=== PATIENT | male | born 1990 | race Two or more races ===

== ENCOUNTER → 2018-05-01 | Outpatient (CLI) | payer OTHER | END | disposition home or self-care (01) | LOC: LAB 10:02 | DX: Z11.3 Encounter for screening for infections with a predominantly sexual mode of transmission (principal) ==

== ENCOUNTER 2018-07-23 11:54 | Emergency (ER) | payer OTHER ==
[~2018-07-23] VITALS: Ht 152.4 cm; Wt 91.6 kg
== END 2018-07-23 16:16 | disposition home or self-care (01) ==
LOC: ER 11:54
DX: R06.02 Shortness of breath (principal); F06.4 Anxiety disorder due to known physiological condition

== ENCOUNTER 2018-07-30 14:53 | Outpatient (CLI) | payer OTHER | END 2018-07-30 15:02 | disposition home or self-care (01) | LOC: RAD 14:53 | DX: R05 Cough (principal) ==

== ENCOUNTER 2018-07-31 07:48 | Outpatient (CLI) | payer OTHER | END 2018-07-31 08:34 | disposition home or self-care (01) | LOC: LAB 07:48 | DX: R51 Headache (principal); R42 Dizziness and giddiness ==

== ENCOUNTER 2018-08-23 08:44 | Outpatient (CLI) | payer OTHER | END 2018-08-23 16:42 | disposition home or self-care (01) | LOC: LAB 08:44 | DX: D52.8 Other folate deficiency anemias (principal); A53.9 Syphilis, unspecified; B82.9 Intestinal parasitism, unspecified ==

== ENCOUNTER → 2019-12-16 08:00 | Outpatient (CLI) | payer OTHER | END | disposition home or self-care (01) | LOC: PPH VACUNA 08:00 | DX: Z23 Encounter for immunization (principal) ==

== ENCOUNTER 2020-01-27 10:40 | Emergency (ER) | payer OTHER ==
[~2020-01-27] VITALS: Ht 160 cm; Wt 86.2 kg
== END 2020-01-27 13:19 | disposition home or self-care (01) ==
LOC: ER 10:40
DX: R04.0 Epistaxis (principal); Z03.818 Encounter for observation for suspected exposure to other biological agents ruled out

== ENCOUNTER → 2020-02-06 | Outpatient (CLI) | payer OTHER | END | disposition home or self-care (01) | LOC: OFIC 805 12:45 | PROVIDERS: ATTEND Otolaryngology Otology & Neurotology | DX: R04.0 Epistaxis (principal); J31.0 Chronic rhinitis ==

== ENCOUNTER 2020-05-21 14:59 | Outpatient (CLI) | payer OTHER | END 2020-05-21 15:48 | disposition home or self-care (01) | LOC: OFIC 805 14:59 | PROVIDERS: ATTEND Otolaryngology Otology & Neurotology | DX: R04.0 Epistaxis (principal); J31.0 Chronic rhinitis; K21.9 Gastro-esophageal reflux disease without esophagitis ==

== ENCOUNTER 2020-07-27 07:23 | Outpatient (CLI) | payer OTHER | END 2020-07-27 07:27 | disposition home or self-care (01) | LOC: LAB 07:23 | DX: R10.13 Epigastric pain (principal) ==

== ENCOUNTER 2021-01-04 08:00 | Outpatient (CLI) | payer OTHER | END 2021-01-04 08:30 | disposition home or self-care (01) | LOC: PPH VACUNA 08:00 | PROVIDERS: ATTEND Emergency Medicine Pediatric Emergency Medicine | DX: Z23 Encounter for immunization (principal) ==

== ENCOUNTER → 2021-03-03 | Outpatient (CLI) | payer OTHER | END | disposition home or self-care (01) | LOC: PPH VACUNA 09:00 | PROVIDERS: ATTEND Emergency Medicine Pediatric Emergency Medicine | DX: Z23 Encounter for immunization (principal) ==

== ENCOUNTER 2022-11-18 10:57 | Emergency (ER) | payer OTHER ==
[~2022-11-18] VITALS: Ht 160 cm; Wt 83.5 kg
== END 2022-11-18 14:06 ==
LOC: ER 10:57
DX: H10.13 Acute atopic conjunctivitis, bilateral (principal); F41.8 Other specified anxiety disorders; K44.9 Diaphragmatic hernia without obstruction or gangrene